=== PATIENT | female | born 1980 | race Caucasian/White ===

== ENCOUNTER 2018-04-01 14:23 | Emergency (ER) | payer OTHER ==
[2018-04-01 14:35] VITALS: RESP 18
[2018-04-01] MEDS ORDERED: Sodium Chloride 0.9% 1,000 ML IV STA (14:47)
[2018-04-01 15:07] LABS: BASO # 0.1 K/uL (0.0-0.2); BASO % 0.9 % (0.0-2.0); EOS # 0.1 K/uL (0.0-0.7); EOS % 1.2 % (0.0-4.0); HEMOGLOBIN 13.7 g/dL (12.0-16.0); LYMPH # 2.3 K/uL (1.0-4.3); LYMPH % 31.4 % (20.0-40.0); MEAN CELL VOLUME 92.7 fl (81.0-99.0); MEAN CORPUSCULAR HEMOGLOBIN 30.2 pg (27.0-31.0); MEAN CORPUSCULAR HGB CONC 32.6 g/dL (33.0-37.0); MEAN PLATELET VOLUME 9.3 fl (7.2-11.7); MONO # 0.5 K/uL (0.0-0.8); MONO % 7.2 % (0.0-10.0); NEUT # 4.4 K/uL (1.8-7.0); NEUT % 59.3 % (50.0-75.0); NRBC % 0.2 % (0.0-0.0); RBC 4.53 Mil/uL (3.80-5.20); RED CELL DISTRIBUTION WIDTH 13.6 % (11.5-14.5); WHITE BLOOD COUNT 7.5 K/uL (4.8-10.8)
--- NOTE | 2018-04-01 15:22 | ED PDOC ---
HPI: Abdomen Time Seen by Provider: 04/01/18 14:36 Chief Complaint (Nursing): Female Genitourinary Chief Complaint (Provider): Abdominal Pain History Per: Patient History/Exam Limitations: no limitations Onset/Duration Of Symptoms: Days (x1) Additional Complaint(s): 37 y/o female who is presents to the ED complaining of lower abdominal pain since last night. Patient reports associated vaginal spotting. She is positive for care and had an US on Monday which showed an IUP. She has no other medical problems. Last Menstral Period: 02/09/2018 : 1 Para: 0 Past Medical History Reviewed: Historical Data, Nursing Documentation, Vital Signs Vital Signs: Last Vital Signs Temp 98.3 F 04/01/18 14:32 Pulse Resp 18 04/01/18 14:32 BP 106/80 04/01/18 14:32 Pulse Ox 99 04/01/18 14:32 - Medical History PMH: No Chronic Diseases - Surgical History Surgical History: No Surg Hx - Family History Family History: States: Unknown Family Hx - Home Medications Home Medications: Ambulatory Orders Medication Instructions Recorded Doxylamine/Pyridoxine HCl (B6) 1 each PO QPM PRN #20 tablet. 04/01/18 [Jessica Taylor 10-10 mg Tablet] Progesterone, Micronized 100 mg PO QPM #30 capsule 04/01/18 [Prometrium] - Allergies Allergies/Adverse Reactions: Allergies Allergy/AdvReac Type Severity Reaction Status Date / Time Unobtainable Allergy Verified 04/01/18 14:46 Review of Systems ROS Statement: Except As Marked, All Systems Reviewed And Found Negative Gastrointestinal: Positive for: Abdominal Pain Genitourinary Female: Positive for: Vaginal Bleeding (spotting) Physical Exam - Reviewed Nursing Documentation Reviewed: Yes Vital Signs Reviewed: Yes - Physical Exam Appears: Positive for: In Acute Distress (moderate painful distress) Head Exam: Positive for: ATRAUMATIC, NORMOCEPHALIC Skin: Positive for: Normal Color, Warm, DRY Eye Exam: Positive for: EOMI, Normal appearance, PERRL Neck: Positive for: Normal, Painless ROM Cardiovascular/Chest: Positive for: Regular Rate, Rhythm. Negative for: Murmur Respiratory: Positive for: Normal Breath Sounds. Negative for: Respiratory Distress Gastrointestinal/Abdominal: Positive for: Tenderness (lower abdominal tendern ess) Back: Positive for: Normal Inspection. Negative for: L CVA Tenderness, R CVA Tenderness, Vertebral Tenderness Extremity: Positive for: Normal ROM. Negative for: Pedal Edema, Deformity Neurologic/Psych: Positive for: Alert, Oriented. Negative for: Motor/Sensory Deficits - Laboratory Results Result Diagrams: 04/01/18 14:50 04/01/18 14:50 - ECG O2 Sat by Pulse Oximetry: 99 (RA) Pulse Ox Interpretation: Normal Medical Decision Making Medical Decision Making: Time: 14:47 Initial Impression: abdominal pain and Initial Plan: * ABO/RH * Type and Screen * beta HCG * CMP * CBC w/ diff * PTT * Prothrombin time * IV Fluids * Tylenol 650 mg PO * US OB Preg Time: 17:23 US OB Preg Findings Uterus Single Live intrauterine gestation. The gestational sac is low lying. The pole and cardiac activity were identified. The yolk sac is identified measuring 0.2 cm. Heart rate: 152 bpm. Hien-gestational hemorrhage: None. Uterus measures 8 x 4.4 x 4.2 cm. It appears slightly heterogeneous. Cervix Long and closed measuring 3.4 cm. No cervical abnormality seen. Right Ovary Measures 3 x 1.1 x 2.3 cm with volume of 3.93 cc. No mass. Normal flow. Left Ovary Not visualized. Free Fluid None. Other Findings None. Impression 1. Single live intrauterine gestation. 2. Low lying gestational sac. 3. Heterogeneous uterus. 4. Left ovary is not visualized. 17:[address] Ravi, agrees with discharge home with Rx Tylenol q6h prn, prune juice or Colace if constipated, Diclegis and Rx Prometrium 100 mg every evening #30 days. Copy of labs and imaging given to patient. Scribe Attestation: Documented by Arsalan Ramos acting as a scribe for Krysten Chandler MD. Provider Scribe Attestation: All medical record entries made by the Scribe were at my direction and personally dictated by me. I have reviewed the chart and agree that the record accurately reflects my personal performance of the history, physical exam, medical decision making, and the department course for this patient. I have also personally directed, reviewed, and agree with the discharge instructions and disposition. Disposition - Clinical Impression Clinical Impression: Threatened , Abdominal pain during in first trimester - Disposition Disposition: Routine/Home Disposition Time: 17:43 Condition: IMPROVED Additional Instructions: DRINK PRUNE JUICE NEEDED FOR CONSTIPATION. FOLLOW-UP WITH DR. RAVI NEXT WEEK SCHEDULED (EARLIER IF SYMPTOMS WORSEN). Prescriptions: Doxylamine/Pyridoxine HCl (B6) [Jessica Taylor 10-10 mg Tablet] 1 each PO QPM PRN #20 tablet. PRN Reason: Nausea/Vomiting Progesterone, Micronized [Prometrium] 100 mg PO QPM #30 capsule Instructions: Threatened Miscarriage, Acute Abdomen (Belly Pain) Forms: [employer] ([place])
[2018-04-01 15:23] LABS: ALB/GLOB RATIO 1.2 (1.0-2.1); ALBUMIN 4.3 g/dL (3.5-5.0); ALT/SGPT 24 U/L (9-52); AST/SGOT 21 U/L (14-36); BLOOD UREA NITROGEN 12 mg/dl (7-17); CALCIUM 9.2 mg/dL (8.4-10.2); GFR NON-AFRICAN AMERICAN > 60
[2018-04-01 15:24] LABS: INR 1.2; PROTHROMBIN TIME 13.4 Seconds (9.8-13.1)
[2018-04-01 15:26] LABS: PARTIAL THROMBOPLASTIN TIME 23.3 Seconds (25.6-37.1)
[2018-04-01 17:57] LABS: URINE BILIRUBIN NEGATIVE (NEGATIVE); URINE BLOOD LARGE (NEGATIVE); URINE CLARITY CLOUDY (Clear); URINE COLOR YELLOW (YELLOW); URINE GLUCOSE (UA) NEG (Normal); URINE LEUKOCYTE ESTERASE NEG Leu/uL (Negative); URINE PROTEIN 30 mg/dL (NEGATIVE); URINE UROBILINOGEN 0.2-1.0 mg/dL (0.2-1.0)
[2018-04-01 17:59] VITALS: BP 111/67; PULSE 70; TEMP 98.2
[2018-04-01 18:16] LABS: SQUAMOUS EPITHIAL 2 /hpf (0-5); URINE BACTERIA RARE (<OCC)
[2018-04-01 18:40] VITALS: O2SAT 99
--- NOTE | 2018-04-02 11:31 | US ---
Date of service: 04/01/2018 PROCEDURE: First trimester ultrasound HISTORY: Vaginal spotting, abd pain COMPARISON: None TECHNIQUE: Standard protocol for this study/examination. FINDINGS: LMP: 02/16/2018 Prior examinations from the current : None. TECHNIQUE: Real-time 2D imaging, duplex and color Doppler. FINDINGS: Cardiac activity: Present Rate: 152 BPM Measurements: [place] rump length: 0.51 cm Gestational age based on CRL 6 weeks 2 days Gestational age out of range based on gestational sac measurement 0.78 cm Gestational age derived from LMP: 6 weeks 2 days STEPHANIE based on LMP: 11/23/2018 STEPHANIE based on biometry: 11/23/2018 Gestational concordance documented Yolk sac identified Cervix: No Cervical abnormalities: Negative examination for cervical dilatation or effacement. Closed cervix measuring 3.42 cm Subchorionic hemorrhage: None UTERUS: 4.2 x 4.4 x 8.0 cm. ADNEXA: Right: 1.1 x 2.3 x 3.0 cm. Normal Doppler arterial waveform documented. Left: Not visible Fluid in the cul-de-sac: None. IMPRESSION: 6 weeks 2 days live intrauterine gestation. Gestational concordance documented. Limitations of the current examination: Non visible left adnexa Concordant findings (preliminary report) provided by [facility].
== END 2018-04-01 18:00 | disposition home or self-care (01) ==
LOC: H.ER 14:23
DX: O20.0 Threatened abortion (principal); O26.899 Other specified pregnancy related conditions, unspecified trimester
CPT/HCPCS: 76815; 76817; 80053; 81003; 84702; 85025; 85610; 85730; 86850; 86900; 87086; 96374; 99284; J2765; J7030